=== PATIENT | female | born 1985 | race Caucasian/White ===

== ENCOUNTER 2018-09-22 18:40 | Emergency (ER) | payer MEDICAID, OTHER ==
[~2018-09-22] VITALS: Ht 160 cm; Wt 99.8 kg
[~2018-09-22 18:40] MED LIST: HYDR-1421; OMEP20TA44
[2018-09-22 20:32] VITALS: BP 141/93
[2018-09-22] MEDS ORDERED: methylPREDNISolone SOD SUCC 125 MG/2 ML VL IM ONE (21:15)
== END 2018-09-22 21:58 | disposition home or self-care (01) ==
LOC: ER 18:40
DX: S66.911A Strain of unspecified muscle, fascia and tendon at wrist and hand level, right hand, initial encounter (principal); G56.31 Lesion of radial nerve, right upper limb; X50.0XXA Overexertion from strenuous movement or load, initial encounter; Y93.89 Activity, other specified; Y99.8 Other external cause status; Y92.89 Other specified places as the place of occurrence of the external cause
CPT/HCPCS: 73110; 96372; 99283; J2930